=== PATIENT | female | born 2000 | race African-American/Black ===

== ENCOUNTER 2024-09-28 09:17 | Inpatient (IN) ==
[2024-09-28] MEDS ORDERED: Lidocaine 1% VIAL 10 MG/ML 30 ML VIAL INJ PRN (10:04)
[2024-09-28] MEDS: Lactated Ringers 1000 ml BAG 1,000 ML IV ONE (10:18)
[2024-09-28] MEDS ORDERED: Lidocaine/Epinephrin 1.5%/200 5 ML AMP INJ ONE (10:25)
[2024-09-28] MEDS ORDERED: OBEPIDURAL (200 ML) 200 ML EPIDURAL ONE (10:26)
[2024-09-28] MEDS ORDERED: Phenylephrine 40 mcg/mL 10mL (400mcg) SYRINGE ONE (10:26)
[2024-09-28 10:33] LABS: ABS Basophils 0.1 10^3/uL (0.0-0.1); ABS Lymphocytes 1.4 10^3/uL (1.0-4.8); ABS Monocytes 0.5 10^3/uL (0.0-0.9); ABS Neutrophils 8.7 10^3/uL (1.5-7.6); ABS Nucleated RBC 0.01 10^3/ul; Eosinophil % 0.2 %; Hematocrit 34.8 % (35-45); Hemoglobin 11.5 g/dL (11.5-14.3); Lymphocyte % 13.2 %; Mean Corpuscular Hemoglobin 28.6 pg (27-33); Mean Corpuscular Hgb Conc 32.9 g/dL (31-36); Nucleated Red Blood Cells % 0.1 %/100WBC (0.0-0.8); Platelet Count 201 10^3/uL (150-450); Red Blood Count 4.01 10^6/uL (3.63-4.92); Red Cell Distribution Width 17.1 % (12-17); White Blood Count 10.7 10^3/uL (3.8-11.8)
[2024-09-28 10:56] LABS: Albumin 3.7 g/dL (3.5-5.7); Albumin/Globulin Ratio 1.5 (1-3); Calcium 8.6 mg/dL (8.6-10.3); Creatinine, Serum 0.5 mg/dL (0.51-0.95); Globulin 2.5 g/dL (2-4); Potassium 3.9 mmol/L (3.5-5.0); Total Bilirubin 0.3 mg/dL (0.2-1.0); Total Protein 6.2 g/dL (6.4-8.9); Uric Acid 4.1 mg/dL (2.3-6.6); eGFR CKD-EPI 132.6 (>60)
[2024-09-28] MEDS: OBEPIDURAL (200 ML) 200 ML EPIDURAL SCH (11:10)
[2024-09-28] MEDS ORDERED: Sodium Citrate/Citric Acid LIQ 15 ML UDC PO PRN (11:19)
[2024-09-28] MEDS ORDERED: Phenylephrine 40 mcg/mL 10mL (400mcg) SYRINGE IV PUSH PRN ×2 (11:19)
[2024-09-28] MEDS ORDERED: Lactated Ringers 1000 ml BAG 1,000 ML IV ONE (11:19)
[2024-09-28] MEDS ORDERED: Lactated Ringers 1000 ml BAG 1,000 ML IV SCH ×2 (12:00→16:00)
[2024-09-28 12:21] LABS: Urine Appearance Clear; Urine Bilirubin Negative (Negative); Urine Blood 3+ (Negative); Urine Color Yellow; Urine Glucose Negative (Negative); Urine Ketones 1+ (Negative); Urine Nitrite Negative (Negative); Urine Protein 1+ (>=30 mg/dL) (Negative); Urine Specific Gravity 1.031 (1.002-1.030); Urine Urobilinogen Negative (Negative); Urine pH 6.5 (5.0-8.0)
[2024-09-28 12:31] LABS: Urine Bacteria Absent /HPF (Absent); Urine Red Blood Cell 3+(>10/hpf) /HPF (0-Trace); Urine Squamous Epithelial Cell Present /HPF (Absent); Urine White Blood Cell Trace(0-5/hpf) /HPF (0-Trace)
[2024-09-28 12:32] LABS: Urine Creatinine Concentration 172.42 mg/dL (20.00-320.00); Urine TP Creat Ratio 0.21 mg/mg
[2024-09-28 12:37] LABS: Urine Benzodiazepine Screen None Detected (None Detect); Urine Cannabinoids Screen None Detected (None Detect); Urine Opiates Screen None Detected (None Detect)
[2024-09-28] MEDS: Oxytocin in LR 20,000 MILLI.UNIT/1,000 ML BAG IV SCH (14:49)
[2024-09-28] MEDS ORDERED: Oxytocin in LR 20,000 MILLI.UNIT/1,000 ML BAG IV ONE (14:49)
[2024-09-28] MEDS ORDERED: Tetan/Diph/Pertus SYR(Tdap) 0.5 ML SYR(BOOSTRIX) use SYR contains LATEX IM ONE (15:07)
[2024-09-28] MEDS ORDERED: Carboprost Tromethamine 250 mcg 1 ml VIAL ONE (16:59)
[2024-09-28] MEDS: Carboprost Tromethamine 250 mcg 1 ml VIAL IM ONE (17:04)
[2024-09-28] MEDS ORDERED: Lidocaine 1% VIAL 10 MG/ML 30 ML VIAL ONE (17:25)
[2024-09-29 07:40] LABS: ABS Eosinophils 0.1 10^3/uL (0.0-0.5); ABS Lymphocytes 1.6 10^3/uL (1.0-4.8); ABS Neutrophils 9.8 10^3/uL (1.5-7.6); Eosinophil % 0.5 %; Hematocrit 30.7 % (35-45); Hemoglobin 10.2 g/dL (11.5-14.3); Lymphocyte % 12.6 %; Mean Corpuscular Hemoglobin 28.8 pg (27-33); Mean Corpuscular Hgb Conc 33.2 g/dL (31-36); Mean Corpuscular Volume 86.7 fL (80-97); Platelet Count 177 10^3/uL (150-450); Red Blood Count 3.54 10^6/uL (3.63-4.92); White Blood Count 12.4 10^3/uL (3.8-11.8)
[2024-09-29] MEDS: Dibucaine 1% OINT 28.35 GM TUBE PR PRN (08:27)
[2024-09-29] MEDS: Witch Hazel PAD JAR TOPICAL PRN (08:27)
[2024-09-29 12:08] VITALS: BP 139/71
== END 2024-09-29 15:57 | disposition home or self-care (01) | DRG 560 ==
LOC: MCHOBOUT 09:17 → MCHOB 10:04
PROVIDERS: ADMIT Midwife; ATTEND Midwife